=== PATIENT | male | born 1990 | race Caucasian/White ===

== ENCOUNTER 2022-02-09 15:36 | Emergency (ER) | payer SELFPAY ==
[2022-02-09 16:55] LABS: HEMOGLOBIN 15.9 gm/dl (14.0-17.5); RED BLOOD COUNT 4.8 M/UL (4.20-5.50); WHITE BLOOD COUNT 6.6 K/UL (4.5-11.0)
[2022-02-09 17:17] LABS: BUN/CREATININE RATIO 12 (0-10)
== END 2022-02-09 18:12 | disposition home or self-care (01) ==
LOC: ER1 15:36
PROVIDERS: Family Medicine
DX: R20.2 Paresthesia of skin (principal)
CPT/HCPCS: 70450; 80053; 82550; 82553; 83735; 84484; 85025; 93005; 99284